=== PATIENT | female | born 1970 | race Hispanic/Latino ===

== ENCOUNTER 2018-02-21 12:05 | Emergency (ER) | payer OTHER, SELFPAY ==
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
== END 2018-02-21 14:02 | disposition home or self-care (01) ==
LOC: ERS 12:05
DX: S42.021A Displaced fracture of shaft of right clavicle, initial encounter for closed fracture (principal); V89.2XXA Person injured in unspecified motor-vehicle accident, traffic, initial encounter

== ENCOUNTER 2020-10-28 00:09 | Emergency (ER) | payer SELFPAY ==
[2020-10-28] MEDS ORDERED: Ketorolac Tromethamine 30 MG/ML VIAL ONE (00:19)
[2020-10-28] MEDS ORDERED: Boostrix 0.5 ML (Tdap) VIAL ONE (00:19)
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
== END 2020-10-28 01:20 | disposition home or self-care (01) ==
LOC: ERS 00:09
DX: S80.12XA Contusion of left lower leg, initial encounter (principal); S20.219A Contusion of unspecified front wall of thorax, initial encounter; S80.02XA Contusion of left knee, initial encounter; V89.2XXA Person injured in unspecified motor-vehicle accident, traffic, initial encounter
CPT/HCPCS: 71250; 90471; 90715; 96372; J1885